=== PATIENT | female | born 1975 ===

== ENCOUNTER 2019-10-17 03:37 | Inpatient (IN) | payer OTHER ==
[~2019-10-17] VITALS: Ht 154.9 cm; Wt 42.6 kg
[2019-10-17] MEDS ORDERED: DULO20CA27 PO (03:44)
[2019-10-17] MEDS ORDERED: PERTUSS(ACELL),DIPH,TET VAC/PF 0.5 ML VIAL IM ONE (03:45)
[2019-10-17] MEDS ORDERED: LIDOCAINE 1%/EPI 1:200,000/PF 10 ML VIAL INJ ONE (04:00)
[2019-10-17] MEDS ORDERED: BACITRACIN 0.9 GM PACKET OINTMENT TP ONE (04:08)
[2019-10-17] MEDS ORDERED: QUEtiapine FUMARATE 100 MG TABLET PO PRN (04:45)
[2019-10-17 05:06] LABS: BASOPHILS % (AUTO) 0.5 % (0.0-2.0); EOSINOPHILS % (AUTO) 1.9 % (1.0-6.0); HEMOGLOBIN 11.3 g/dL (12.0-16.0); LYMPHOCYTES # (AUTO) 5.1 K/uL (1.0-4.8); LYMPHOCYTES % (AUTO) 45.5 % (22.0-44.0); MEAN CORPUSCULAR HEMOGLOBIN 32.8 pg (26.0-34.0); MEAN CORPUSCULAR HGB CONC 33.3 G/dL (31.0-37.0); MEAN CORPUSCULAR VOLUME 99 fL (80-100); MONOCYTES # (AUTO) 0.6 K/uL (0.1-1.0); MONOCYTES % (AUTO) 5.5 % (2.0-9.0); NEUTROPHILS # (AUTO) 5.2 K/uL (1.8-7.7); NEUTROPHILS % (AUTO) 46.6 % (40.0-70.0); PLATELET COUNT (AUTO) 329 K/uL (150-450); RED BLOOD CELL COUNT(AUTO) 3.45 MIL/uL (4.00-5.20); RED CELL DISTRIBUTION WIDTH 13.3 % (11.5-14.5)
[2019-10-17 05:07] LABS: CALCIUM, TOTAL 8.8 mg/dL (8.8-10.5); CREATININE 1.09 mg/dL (0.60-1.30); POTASSIUM 3.2 mmol/L (3.5-5.1)
[2019-10-17] MEDS ORDERED: POTASSIUM CHLORIDE 20 MEQ ER TABLET PO ONE (05:15)
[2019-10-17 05:18] LABS: AMPHET/METH SCREEN,URINE NEGATIVE (NEGATIVE); BARBITURATE SCREEN, URINE POSITIVE (NEGATIVE); BENZODIAZEPINES SCREEN,URINE NEGATIVE (NEGATIVE); CANNABINOID SCREEN,URINE NEGATIVE (NEGATIVE); COCAINE SCREEN,URINE NEGATIVE (NEGATIVE); METHADONE SCREEN, URINE NEGATIVE (NEGATIVE); OPIATE SCREEN,URINE NEGATIVE (NEGATIVE)
[2019-10-17 05:18] LABS: ALBUMIN 3.5 g/dL (3.4-5.0); BILIRUBIN,TOTAL 0.1 mg/dL (0.1-1.0); TOTAL PROTEIN, SERUM 6.6 g/dL (6.4-8.2)
[2019-10-17 05:19] LABS: PHENCYCLIDINE SCREEN,URINE NEGATIVE (NEGATIVE)
[2019-10-17 06:02] VITALS: BP 116/76
[2019-10-17] MEDS ORDERED: CloNIDine HCL 0.1 MG TABLET PO PRN (07:45)
[2019-10-17] MEDS ORDERED: NICOTINE 14 MG/24 HOUR PATCH TD PRN (07:45)
[2019-10-17] MEDS ORDERED: ACETAMINOPHEN 325 MG TABLET PO PRN (07:45)
[2019-10-17] MEDS ORDERED: ALBUTEROL SULFATE HFA 90 MCG/PUFF 8 GM INHALER IH PRN (07:45)
[2019-10-17] MEDS ORDERED: MAGNESIUM HYDROXIDE SUSPENSION 30 ML UDCUP PO PRN (07:45)
[2019-10-17] MEDS ORDERED: MAG HYDROX/AL HYDROX/SIMETH ES 30 ML SUSPENSION UDCUP PO PRN (07:45)
[2019-10-17] MEDS ORDERED: DOCUSATE SODIUM 100 MG CAPSULE PO PRN (07:45)
[2019-10-17] MEDS ORDERED: GuaiFENesin/D-METHORPHAN [SUGAR-FREE] 200-20MG/10 ML SYRUP UDCUP PO PRN (07:45)
[2019-10-17] MEDS ORDERED: LOPERAMIDE HCL 2 MG CAPSULE PO PRN (07:45)
[2019-10-17] MEDS ORDERED: PETROLATUM,WHITE 28 GM JELLY TP PRN (07:45)
[2019-10-17] MEDS ORDERED: ONDANSETRON HCL 4 MG TABLET PO PRN (07:45)
[2019-10-17] MEDS: BACITRACIN 28 GM OINTMENT TP SCH ×2 (10:57→16:54)
[2019-10-17] MEDS: LORazepam 2 MG TABLET PO PRN ×2 (11:40→20:51)
[2019-10-17] MEDS: IBUPROFEN 400 MG TABLET PO PRN ×2 (11:40→20:51)
[2019-10-17 16:42] VITALS: BP 99/63
[2019-10-18 07:23] LABS: CHOL/HDL RATIO 2.4 (3.9-5.7); MAGNESIUM 1.9 mg/dL (1.80-2.40); PHOSPHORUS 3.4 mg/dL (2.5-4.9)
[2019-10-18 09:00] VITALS: BP 128/70
[2019-10-18] MEDS ORDERED: DULoxetine HCL 60 MG CAPSULE PO SCH (09:00)
[2019-10-18] MEDS: BACITRACIN 28 GM OINTMENT TP SCH ×2 (09:08→16:39)
[2019-10-18] MEDS: MULTIVITAMINS WITH MINERALS, THERAPEUTIC TABLET PO SCH (09:08)
[2019-10-18] MEDS: FOLIC ACID 1 MG TABLET PO SCH (09:08)
[2019-10-18] MEDS: THIAMINE 100 MG TABLET PO SCH (09:08)
[2019-10-18] MEDS: LORazepam 2 MG TABLET PO PRN (09:09)
[2019-10-18 16:00] VITALS: BP 107/65
[2019-10-18 21:31] VITALS: BP 115/71
[2019-10-18] MEDS: IBUPROFEN 400 MG TABLET PO PRN (21:31)
[2019-10-18] MEDS: ZOLPIDEM TARTRATE 10 MG TABLET PO PRN (21:31)
[2019-10-19 08:00] VITALS: BP 108/68
[2019-10-19] MEDS: LORazepam 2 MG TABLET PO PRN (08:52)
[2019-10-19] MEDS: MULTIVITAMINS WITH MINERALS, THERAPEUTIC TABLET PO SCH (08:53)
[2019-10-19] MEDS: FOLIC ACID 1 MG TABLET PO SCH (08:53)
[2019-10-19] MEDS: THIAMINE 100 MG TABLET PO SCH (08:53)
[2019-10-19] MEDS: BACITRACIN 28 GM OINTMENT TP SCH ×2 (08:53→16:57)
[2019-10-19] MEDS: DULoxetine HCL 20 MG CAPSULE PO SCH (09:23)
[2019-10-19 16:00] VITALS: BP 101/65
[2019-10-19] MEDS: ZOLPIDEM TARTRATE 10 MG TABLET PO PRN (21:02)
[2019-10-20 08:00] VITALS: BP 117/74
[2019-10-20] MEDS: FOLIC ACID 1 MG TABLET PO SCH (09:52)
[2019-10-20] MEDS: DULoxetine HCL 20 MG CAPSULE PO SCH (09:52)
[2019-10-20] MEDS: MULTIVITAMINS WITH MINERALS, THERAPEUTIC TABLET PO SCH (09:53)
[2019-10-20] MEDS: THIAMINE 100 MG TABLET PO SCH (09:53)
[2019-10-20] MEDS: BACITRACIN 28 GM OINTMENT TP SCH ×2 (09:57→17:30)
[2019-10-20] MEDS ORDERED: DULO20CA27 PO (17:41)
== END 2019-10-20 18:30 | disposition home or self-care (01) | DRG 885 ==
LOC: EMS 03:37 → 3EI 05:00
PROC: 0HQEXZZ Repair Left Lower Arm Skin, External Approach (ICD-10-PCS; principal; 2019-10-17)
PROC: 0HQDXZZ Repair Right Lower Arm Skin, External Approach (ICD-10-PCS; 2019-10-17)
DX: F33.2 Major depressive disorder, recurrent severe without psychotic features (principal); R45.851 Suicidal ideations; Z20.828 Contact with and (suspected) exposure to other viral communicable diseases; F17.210 Nicotine dependence, cigarettes, uncomplicated; F10.10 Alcohol abuse, uncomplicated; S61.512A Laceration without foreign body of left wrist, initial encounter; S61.511A Laceration without foreign body of right wrist, initial encounter; X78.8XXA Intentional self-harm by other sharp object, initial encounter; Y93.89 Activity, other specified; Y92.89 Other specified places as the place of occurrence of the external cause; Y99.8 Other external cause status; D72.829 Elevated white blood cell count, unspecified; E87.6 Hypokalemia; Z79.899 Other long term (current) drug therapy; Z91.5 Personal history of self-harm; D64.9 Anemia, unspecified
CPT/HCPCS: 83735; 84100; 84132; 87426; 90715; G0480; J3490